=== PATIENT | female | born 1955 | race Caucasian/White ===

== ENCOUNTER 2019-09-26 15:14 | Inpatient (IN) | payer BC ==
--- OUTSIDE RECORDS SUMMARY | 2019-09-26 15:54 | XMS REPORT ---
:[address] [facility] t Address [address] Castañeda [address] [place] [id number] Care Team Providers Name Role Phone Unavailable Unavailable Unavailable Payers Payer Name Policy Type Policy Number Effective Date Expiration D ate Problems This patient has no known problems. Allergies, Adverse Reactions, Alerts This patient has no known allergies or adverse reactions. Medications This patient has no known medications.
[2019-09-26 16:44] VITALS: BMI 31.8
[2019-09-26] MEDS: Ringers Lactate 1,000 ML IV SCH (20:13)
[2019-09-26] MEDS: CIPROFLOXACIN 400mg IV 400 MG/200 ML BAG IV SCH (20:13)
[2019-09-27 08:01] LABS: MPV 8.2 fL (7.6-11.3)
[2019-09-27] MEDS ORDERED: [UNRECOGNIZED DRUG - OTHER] PO SCH (09:00)
[2019-09-27] MEDS ORDERED: HYDROCHLOROTHIAZIDE PO SCH (09:00)
[2019-09-27] MEDS ORDERED: HOME MED 1 EA UNK (Pravastatin Sodium [Pravastatin Sodium] 40 MG) PO SCH (09:00)
[2019-09-27] MEDS ORDERED: BISOPROLOL PO SCH (09:00)
[2019-09-27 09:23] LABS: Platelet Estimate ADEQ
[2019-09-27] MEDS: ENOXAPARIN 40 MG/0.4 ML SQ SCH (09:37)
[2019-09-27] MEDS: CIPROFLOXACIN 400mg IV 400 MG/200 ML BAG IV SCH ×2 (09:37→20:23)
[2019-09-27] MEDS: BISOPROLOL/HCTZ 2.5/6.25MG TAB PO SCH (09:38)
--- NOTE | 2019-09-27 11:20 | CON ---
Date of Consultation: 09/26/2019 Reason For Consultation: Abdominal pain. History Of Present Illness: Patient is a 64-year-old female comes in with a 2-week history of lower abdominal pain. Occasional nausea. No vomiting. Occasional diarrhea, constipation. No blood in he r stool. She had a colonoscopy 2 years ago which showed benign polyps and diverticulosis. It was do ne by Dr. Metz. She has no sore throat, runny nose, cough, headaches, or dizziness. No chest pain. No fever or chills. Review of Systems: Otherwise unremarkable. Past Medical History: Significant for hypertension and high cholesterol. Past Surgical History: Gallbladder surgery, hernia surgery, . Allergies: NO ALLERGIES. Social History: She does not smoke. She drinks occasionally. Family History: Negative. Physical Examination: Vital Signs: Stable. She is currently afebrile she is awake, alert, oriented x3. Cranial nerves 2 through 12 grossly within normal limits. Neck: No neck masses. No JVD. Throat clear. Neck is supple. Chest: Clear. Heart: S1 and S2. Abdomen: Soft, nondistended. Positive bowel sounds. Positive suprapubic left lower quadrant, right lower quadrant tenderness. No rebound, rigidity, or guarding. Extremities: Adequately perfused. Nontender. Neuro: Nonfocal. Laboratory Data: White count done yesterday, it was 20.8, today's is pending. There was a left shif t. INR was 0.98. Chemistry was reviewed and it was essentially unremarkable. CT of the abdomen and pelvis was reviewed with Dr. Roper yesterday, essentially patient has in the deep central pelvis, 2 abscess collections, 5 cm and 3 cm in size. They are adjacent to the sigmoid colon where there is a long segment circumferential wall thickness and edema. Edema and stranding are present in the chayito cent fat and patient has diverticulosis and these abscess collections are not amenable to percutaneou s drainage. There is also 7 cm long segment of distal ileum showing circumferential wall thickening and this segment of bowel about the larger of the 2 abscess collections. The most common presentatio n would be sigmoid diverticulitis with abscess formation, secondary small bowel involvement. Primary ileum process with secondary sigmoid involvement would be less common. A spiculated 2.5 cm mass lie between the abscess collection and may be reactive from the infectious process; however, with the po ssibility of malignant etiology including carcinoma cannot be excluded. There are some other finding s that are not acute. Assessment: Acute sigmoid diverticulitis with pelvic abscess in the patient with no peritonitis and leukocytosis. Recommendations: Would be to continue the patient's IV antibiotics, serial abdominal exams, follow t he blood work. Clinically the patient looks much better than her white count and I do not think we n eed an urgent surgical intervention at this time. If she does improve, she would need oral antibioti cs for 2 weeks after discharge, followed by a CAT scan to make sure there is resolution of the absces s and then a colonoscopy, and then a colorectal surgeon's evaluation for one-stage procedure. If otf cornel she clinically does not improve, then acute surgical intervention may be indicated resulting in a Samina's procedure. The plan of care was discussed in detail with Dr. Geller as well as the patient. I will follow this patient closely while in the hospital. PORTIA/MARLON Voice ID: [id number] Report ID: [id number]
[2019-09-27] MEDS: ACETAMINOPHEN 325 MG TABLET PO PRN (11:49)
[2019-09-27] MEDS: Ringers Lactate 1,000 ML IV SCH ×2 (15:00→17:45)
--- NOTE | 2019-09-27 16:15 | P.HP ---
Certification for Inpatient Patient admitted to: Inpatient With expected LOS: >2 Midnights Practitioner: I am a practitioner with admitting privileges, knowledge of patient current condition, hospital course, and medical plan of care. Services: Services provided to patient in accordance with Admission requirements found in Title 42 Section 412.3 of the Code of Federal Regulations Patient History Date of Service: 09/26/19 Reason for admission: ABDOMEN PAIN. History of Present Illness: I SAW HER YESTERDAY ABOUT 6 PM. SHE WAS SENT BY DR. ESPAÑA FOR DIRECT ADMISSION FOR ABDOMEN PAIN AND DIVERTICULAR ABSCESSES. SHE HAS HAD THIS PAIN IN ABDOMEN FOR A WEEK. HER WBC COUNT IS 20K. Allergies No Known Allergies Allergy (Verified 09/26/19 16:44) Home Medications: Bisoprolol/Hydrochlorothiazide [Bisoprolol-Hctz 2.5-6.25 mg Tb] 1 tab PO DAILY 09/26/19 Pravastatin Sodium 40 mg PO DAILY 09/26/19 - Past Medical/Surgical History Has patient received pneumonia vaccine in the past: Yes Diabetic: No -: HTN -: Hyperlipedemia -: gall bladder removal -: hiatal ghernia repair -: c section - Social History Smoking Status: Current every day smoker Alcohol use: Yes CD- Drugs: No Caffeine use: Yes Place of Residence: Home Review of Systems 10-point ROS is otherwise unremarkable Gastrointestinal: Abdominal Pain Physical Examination - Vital Signs Temperature: 97.4 F Blood Pressure: 133/77 Pulse: 71 Respirations: 16 Pulse Ox (%): 96 - Physical Exam General: Alert, In no apparent distress HEENT: Atraumatic, PERRLA, Mucous membr. moist/pink, EOMI, Sclerae nonicteric Neck: Supple, 2+ carotid pulse no bruit, No LAD, Without JVD or thyroid abnormality Respiratory: Clear to auscultation bilaterally, Normal air movement Cardiovascular: Regular rate/rhythm, Normal S1 S2 Gastrointestinal: Normal bowel sounds, No tenderness Musculoskeletal: No tenderness Integumentary: No rashes Neurological: Normal gait, Normal speech, Normal strength at 5/5 x4 extr, Normal tone, Normal affect Lymphatics: No axilla or inguinal lymphadenopathy - Studies Laboratory Data (last 24 hrs) 09/27/19 07:33: Plt Count 356 Assessment and Plan - Problems (Diagnosis) (1) Diverticular disease of intestine with perforation and abscess Current Visit: Yes Status: Acute Plan: IV CIPRO AND FLAGYL. SHE LOOKS GOOD AND IS QUITE ASYMPTOMATIC FOR SOMEONE WITH CT SCAN WITH TWO ABSCESSES. SHE MAY NOT NEED URGENT SURGERY. SHE WILL NEED TO FU WITH COLORECTAL SURGEON. (2) Abnormal CT of the abdomen Current Visit: Yes Status: Acute Plan: FULLNESS NEAR ILEUM NEEDS TO BE CLARIFIED ONCE AGAIN BY COLORECTAL SURGEON. - Advance Directives Does patient have a Living Will: No Does patient have a Durable POA for Healthcare: No
[2019-09-27] MEDS: METRONIDAZOLE 500mg IVPB 500 MG/100 ML BAG IV SCH (20:23)
[2019-09-27] MEDS: ATORVASTATIN 10 MG TAB PO SCH (20:23)
[2019-09-27 21:51] VITALS: O2SAT 95
--- NOTE | 2019-09-27 21:59 | PN ---
Subjective: Ms. Carreon is doing really good. Denies chest pain, nausea, or vomiting . Denies double vision, blurred vision, paralysis, numbness. Objective: Vital Signs: Blood pressure 133/72. Chest: Clear. Heart: Regular. Abdomen: No guarding, no rebound, no rigidity. There is minimal tenderness. Assessment And Plan: 1.Diverticular abscesses. IV antibiotics. Possible discharge Monday evening or Monday morning. Pl an to go to a colorectal surgeon. 2.Some ileal defect on the CAT scan. Needs to be followed up by a colorectal surgeon at the time of surgery or laparoscopy if it is done in future. CHANTAL/MARLON Voice ID: [id number] Report ID: [id number]
[2019-09-28] MEDS: METRONIDAZOLE 500mg IVPB 500 MG/100 ML BAG IV SCH ×4 (00:26→16:34)
[2019-09-28] MEDS: ACETAMINOPHEN 325 MG TABLET PO PRN (04:54)
[2019-09-28 06:17] LABS: BUN Blood Urea Nitrogen 5 mg/dL (7-18); Bicarbonate 29 mmol/L (21-32); Glucose Level 101 mg/dL (74-106); Sodium Level 142 mmol/L (136-145)
[2019-09-28 07:36] LABS: Absolute Lymphocytes (CBC) 1.1 K/uL (0.7-4.9); Basophils % 0.4 % (0-1.3); Hematocrit 36.8 % (36.0-45.0); Lymphocytes % 12.3 % (15.3-44.8); MPV 7.8 fL (7.6-11.3); RBC Red Blood Cell Count 4.08 M/uL (3.86-4.86)
[2019-09-28] MEDS: BISOPROLOL/HCTZ 2.5/6.25MG TAB PO SCH (09:00)
[2019-09-28] MEDS: CIPROFLOXACIN 400mg IV 400 MG/200 ML BAG IV SCH ×2 (09:11→20:47)
[2019-09-28] MEDS: ENOXAPARIN 40 MG/0.4 ML SQ SCH (09:12)
[2019-09-28] MEDS: Ringers Lactate 1,000 ML IV SCH ×2 (11:00→20:57)
--- NOTE | 2019-09-28 14:36 | PN ---
Subjective: Patient is awake, alert. No complaint. Objective: Vital Signs: Stable. Afebrile. Abdomen: Completely benign. Laboratory Data: White count is normal. Assessment: Acute sigmoid diverticulitis with pelvic abscess. Recommendation: We will advance diet. Dietary consultation. Continue IV antibiotics. Hopefully di scharge in 48 hours or so. /MODL Voice ID: [id number] Report ID: [id number]
[2019-09-28] MEDS: ATORVASTATIN 10 MG TAB PO SCH (20:47)
[2019-09-29] MEDS: METRONIDAZOLE 500mg IVPB 500 MG/100 ML BAG IV SCH ×2 (00:01→08:08)
[2019-09-29 05:34] LABS: Absolute Lymphocytes (CBC) 1.2 K/uL (0.7-4.9); Basophils % 0.5 % (0-1.3); Hematocrit 36.6 % (36.0-45.0); Lymphocytes % 15.8 % (15.3-44.8); MPV 8.1 fL (7.6-11.3); RBC Red Blood Cell Count 4.11 M/uL (3.86-4.86)
[2019-09-29 05:47] LABS: BUN Blood Urea Nitrogen 4 mg/dL (7-18); Bicarbonate 29 mmol/L (21-32); Glucose Level 93 mg/dL (74-106); Potassium 4.3 mmol/L (3.5-5.1); Sodium Level 145 mmol/L (136-145)
[2019-09-29] MEDS: ENOXAPARIN 40 MG/0.4 ML SQ SCH (08:07)
[2019-09-29] MEDS: CIPROFLOXACIN 400mg IV 400 MG/200 ML BAG IV SCH (08:08)
[2019-09-29] MEDS: BISOPROLOL/HCTZ 2.5/6.25MG TAB PO SCH (08:08)
[2019-09-29 09:21] VITALS: BP 116/72; TEMP 97.6
--- NOTE | 2019-09-29 13:07 | PN ---
Date of Progress Note: 09/29/2019 Subjective: Patient is awake, alert, no complaint. Objective: Vital Signs: Stable, afebrile. Abdomen: Benign. Assessment: Acute sigmoid diverticulitis and abscess. Recommendations: Patient clinically doing well. Can be discharged on oral antibiotics and follow up with colorectal surgeon. Needs a CAT scan and colonoscopy prior to any procedure. /MODL Voice ID: [id number] Report ID: [id number]
--- NOTE | 2019-09-29 13:45 | P.PN ---
Subjective Date of Service: 09/28/19 Chief Complaint: ABDOMEN PAIN. Subjective: Improving she is doing great now. No fever and no pain Physical Examination - Vital Signs Temperature: 97.6 F Blood Pressure: 116/72 Pulse: 59 Respirations: 15 Pulse Ox (%): 95 - Physical Exam General: Alert, In no apparent distress HEENT: Atraumatic, PERRLA, EOMI Neck: Supple, JVD not distended Respiratory: Clear to auscultation bilaterally, Normal air movement Cardiovascular: Regular rate/rhythm, Normal S1 S2 Gastrointestinal: Tenderness (mild r lower) Musculoskeletal: No tenderness Integumentary: No rashes Neurological: Normal speech, Normal tone, Normal affect Lymphatics: No axilla or inguinal lymphadenopathy - Studies Laboratory Data (last 24 hrs) 09/29/19 05:01: Sodium 145, Potassium 4.3, BUN 4 L, Creatinine 0.63, Glucose 93 09/29/19 05:01: WBC 7.4 D, Hgb 12.1, Hct 36.6, Plt Count 359 Medications List Reviewed: Yes Assessment And Plan - Current Problems (Diagnosis) (1) Diverticular disease of intestine with perforation and abscess Current Visit: Yes Status: Acute Plan: IV CIPRO AND FLAGYL. SHE LOOKS GOOD AND IS QUITE ASYMPTOMATIC FOR SOMEONE WITH CT SCAN WITH TWO ABSCESSES. SHE MAY NOT NEED URGENT SURGERY. SHE WILL NEED TO FU WITH COLORECTAL SURGEON. RESUME ABX. DC HOME IN AM. WBC IS NORMAL NOW. (2) Abnormal CT of the abdomen Current Visit: Yes Status: Acute Plan: FULLNESS NEAR ILEUM NEEDS TO BE CLARIFIED ONCE AGAIN BY COLORECTAL SURGEON.
--- NOTE | 2019-09-29 13:49 | P.DS ---
Admission Date: 09/26/19 Discharge Date: 09/29/19 Disposition: ROUTINE DISCHARGE Discharge Condition: FAIR Reason for Admission: ABDOMEN PAIN. - Problems (1) Diverticular disease of intestine with perforation and abscess Current Visit: Yes Status: Acute (2) Abnormal CT of the abdomen Current Visit: Yes Status: Acute Brief History of Present Illness: I SAW HER YESTERDAY ABOUT 6 PM. SHE WAS SENT BY DR. ESPAÑA FOR DIRECT ADMISSION FOR ABDOMEN PAIN AND DIVERTICULAR ABSCESSES. SHE HAS HAD THIS PAIN IN ABDOMEN FOR A WEEK. HER WBC COUNT IS 20K. Hospital Course: MS. HUFF HAS LOWER ABDOMEN PAIN. FUOND TO HAVE DIVERTICULAR RUPTURE AND ABSCESS. SHE NEVER HAD MUCH PAIN IN ABDOMEN SINCE THIS ADMISSION. HER WBC COUNT CAME DOWN FROM 20K TO NORMAL. SHE NEEDS TO FU WITH COLORECTAL SURGEON. THERE ARE TWO ABSSCESSES AND SOME FULLNESS NEAR ILEUM THAT NEED CLARIFIED. FU IN OFFICE IN 2 WEEKS. Vital Signs/Physical Exam: Temp Pulse Resp BP Pulse Ox 97.6 F 59 15 116/72 95 09/29/19 13:44 09/29/19 13:44 09/29/19 13:44 09/29/19 13:44 09/29/19 13:44 Laboratory Data at Discharge: WBC 7.4 K/uL (4.3-10.9) D 09/29/19 05:01 Hgb 12.1 g/dL (12.0-15.0) 09/29/19 05:01 Hct 36.6 % (36.0-45.0) 09/29/19 05:01 Plt Count 359 K/uL (152-406) 09/29/19 05:01 Sodium 145 mmol/L (136-145) 09/29/19 05:01 Potassium 4.3 mmol/L (3.5-5.1) 09/29/19 05:01 BUN 4 mg/dL (7-18) L 09/29/19 05:01 Creatinine 0.63 mg/dL (0.55-1.3) 09/29/19 05:01 Glucose 93 mg/dL (74-106) 09/29/19 05:01 Home Medications: Bisoprolol/Hydrochlorothiazide [Bisoprolol-Hctz 2.5-6.25 mg Tb] 1 tab PO DAILY 09/26/19 Pravastatin Sodium 40 mg PO DAILY 09/26/19 Ciprofloxacin HCl [Cipro 500 MG Tablet] 500 mg PO BID #24 tab 09/29/19 metroNIDAZOLE [Flagyl] 500 mg PO Q8H #36 tablet 09/29/19 New Medications: Ciprofloxacin HCl [Cipro 500 MG Tablet] 500 mg PO BID #24 tab metroNIDAZOLE [Flagyl] 500 mg PO Q8H #36 tablet Diet: EGGS AND LIQUIDS
== END 2019-09-29 14:34 | disposition home or self-care (01) | DRG 392 ==
LOC: 2ND 15:52
PROVIDERS: ADMIT Internal Medicine; ATTEND Internal Medicine
DX: K57.20 Diverticulitis of large intestine with perforation and abscess without bleeding (principal); I10 Essential (primary) hypertension; E78.5 Hyperlipidemia, unspecified; F17.200 Nicotine dependence, unspecified, uncomplicated; N73.9 Female pelvic inflammatory disease, unspecified; Z79.899 Other long term (current) drug therapy
CPT/HCPCS: 36415; 74177; 80048; 80053; 82150; 83690; 85025; 85049; 85652; J0744; J1650; J7120; Q9967